=== PATIENT | female | born 1990 | race Two or more races ===

== ENCOUNTER 2024-03-01 11:56 | Emergency (ER) | payer OTHER ==
[~2024-03-01] VITALS: Ht 157.5 cm; Wt 63.2 kg
[2024-03-01 12:54] LABS: Urine Bacteria None Seen /hpf (None Seen)
[2024-03-01 13:01] LABS: Urine Blood Negative /uL (Negative); Urine Clarity Clear (Clear); Urine Color Light-Yellow (Yellow); Urine Protein, UAD Negative (Negative); Urine Specific Gravity 1.019 (1.001-1.035); Urine Urobilinogen Normal (Negative); Urine WBC 1 /hpf (0 - 5)
[2024-03-01] MEDS: methylPREDNISolone SOD SUCC 125 MG/2 ML VL IM ONE (14:33)
[2024-03-01] MEDS ORDERED: LIDO5DIS21 TOP (14:33)
[2024-03-01] MEDS ORDERED: NAP500T PO (14:33)
[2024-03-01] MEDS: KETOROLAC TROMETH 30 MG/ML 1ML VIAL IM ONE (14:33)
[2024-03-01 14:37] VITALS: BP 119/80; PULSE 85; RESP 16; TEMP 98.5; O2SAT 100
== END 2024-03-01 14:44 | disposition home or self-care (01) ==
LOC: ER 11:56
DX: M54.50 Low back pain, unspecified (principal); Z32.02 Encounter for pregnancy test, result negative
CPT/HCPCS: 81001; 81025; 96372; 99284; J1885; J2919